=== PATIENT | male | born 1965 | race Two or more races ===

== ENCOUNTER 2024-05-17 13:26 | Emergency (ER) | payer OTHER ==
[~2024-05-17] VITALS: Ht 162.6 cm; Wt 62.3 kg
[2024-05-17 14:22] VITALS: BP 146/76; PULSE 66; RESP 16; TEMP 98.7; O2SAT 98
[2024-05-17] MEDS: KETOROLAC TROMETH 60MG/2ML VIAL IM ONE (14:41)
[2024-05-17] MEDS ORDERED: TRAM-626 PO (15:23)
== END 2024-05-17 15:53 | disposition home or self-care (01) ==
LOC: ER 13:30
DX: S22.32XA Fracture of one rib, left side, initial encounter for closed fracture (principal); E11.9 Type 2 diabetes mellitus without complications; W18.09XA Striking against other object with subsequent fall, initial encounter; Y93.89 Activity, other specified; Y92.89 Other specified places as the place of occurrence of the external cause; Y99.0 Civilian activity done for income or pay
CPT/HCPCS: 71101; 96372; 99283; J1885